=== PATIENT | female | born 2000 | race Caucasian/White ===

== ENCOUNTER 2021-03-16 10:45 | Emergency (ER) | payer MEDICAID, SELFPAY ==
[2021-03-16 10:57] VITALS: BP 125/83; PULSE 95; RESP 18; TEMP 37; O2SAT 100; BMI 27.3
--- NOTE | 2021-03-16 11:15 | ED_ITS ---
HPI - Abdominal Pain General Chief Complaint: Abdominal Pain Stated Complaint: abd pain Time Seen by Provider: 03/16/21 11:10 Source: patient Limitations: language barrier History of Present Illness HPI narrative: Patient presents the ER complaining of dysuria 2-3 days with some noted blood in her urine. Because of the painful urination. No nausea vomiting some slight left-sided abdominal pain symptoms are [id number] history of UTI many years prior. No fever chills or other complaints this time. Patient interviewed with screening alpaca farmer although patient does speak a fair amount of Romanian. Related Data Previous Rx's Medication Instructions Recorded sulfamethoxazole 800 1 tab PO BID 5 Days #10 tab 03/16/21 mg-trimethoprim 160 mg tablet (Bactrim DS) Allergies Allergy/AdvReac Type Severity Reaction Status Date / Time No Known Allergies Allergy Verified 03/16/21 10:57 Review of Systems Constitutional: Denies body ache(s), Denies chills, Denies fever(s) and Denies headache(s) Denies headache(s) and Denies sore throat Cardiovascular: Denies chest pain and Denies dyspnea Respiratory: Denies dyspnea Gastrointestinal: Reports abdominal pain (Slight left-sided), Denies diarrhea, Denies nausea and Denies vomiting Genitourinary: Reports dysuria, Denies flank pain, Reports urinary urgency and Denies vaginal discharge Musculoskeletal: Denies back pain Denies headache(s) Physical Exam Verdana 4l Vital Signs: Verdana 4d Verdana 4d Vital Signs: Verdana 4d Verdana 4Bd Last Vital Signs Verdana 4d Grinder New 4d Grinder New 4d Temp 98.6 F 03/16/21 10:57 Grinder New 4d Pulse 95 03/16/21 10:57 Grinder New 4d Resp 18 03/16/21 10:57 BP 125/83 03/16/21 10:57 Pulse Ox 100 03/16/21 10:57 BMI result Body Mass Index 27.3 vital signs have been reviewed as normal and appeared to be correct. Blood pressure normal. Heart rate normal. Respiration rate normal. Temperature normal. Oxygen saturation normal. Appearance: Alert. Oriented X3. No acute distress. Head: Normal external exam. Normocephalic. Atraumatic. Eyes: PERRLA. EOMI. Conjunctiva and sclera normal. Eyelids normal. ENT: Pharynx normal. Uvula midline. Moist mucous membranes. Neck: Soft full range of motion, no JVD CVS: Heart regular rate and rhythm no murmurs and rubs Respiratory: Breath sounds are clear to auscultation bilaterally. No accessory muscle use noted. Abdomen: Abdomen soft no rebound or guarding positive bowel sounds Back: No CVA tenderness. Full range of motion noted. Skin: Skin warm and dry. Normal skin color. Normal skin turgor. No rashes/lesions/lacerations noted. Extremities: No lower extremity edema. Extremities exhibit normal range of motion. Extremities nontender. Neuro: Oriented X 3. No motor deficit. No sensory deficit. Reflexes normal. Course Course Course Narrative: Pyelonephritis UTI Dysuria UA is pending 11:54 a.m. Case discussed with patient at length with video alpaca farmer patient understands the diagnostic findings and plan to start on antibiotics at this time. Patient also notes instructed increase fluids rest and return if symptoms worsen. MDM - Abdominal Pain Lab Data Labs: Lab Results 03/16/21 Range/Units 11:16 Urine Color YELLOW Urine Appearance HAZY Urine pH 6.0 (5.0-8.0) Ur Specific [place] 1.015 (1.005-1.025) Urine Protein TRACE (NEG-TRACE) MG/DL Urine Glucose (UA) NEG (NEG) MG/DL Urine Ketones NEG (NEG) MG/DL Urine Blood 2+ H (NEG) Urine Nitrite NEG (NEG) Ur Leukocyte Esterase 2+ H (NEG) Discharge Plan Discharge Clinical Impression: Urinary tract infection Qualifiers: Urinary tract infection type: acute cystitis Hematuria presence: with hematuria Qualified Code(s): N30.01 - Acute cystitis with hematuria Patient Disposition: Home, Self-Care Instructions: Urinary Tract Infection in Women (DC) Additional Instructions: Increase fluids rest Return if symptoms worsen Prescriptions: New sulfamethoxazole-trimethoprim [Bactrim DS] 800-160 mg tablet 1 tab PO BID 5 Days Qty: 10 0RF Print Language: Welsh [facility] Past Medical History Attestation statement: The following information was validated with the patient. Medical History Anemia Social History Social History Advance Directives: No Advance Directives Information Provided: No
[2021-03-16 11:22] LABS: Appearance Urine HAZY; Color Urine YELLOW; Glucose Urine UA NEG (NEG); Leukocyte Esterase Urine 2+ (NEG); Nitrite Urine NEG (NEG); Specific Gravity - Urine 1.015 (1.005-1.025); UACC Culture Trigger YES; Urine Blood 2+ (NEG); Urine Ketones NEG (NEG); Urine Protein TRACE MG/DL (NEG-TRACE)
[2021-03-16 12:03] LABS: WBC Urine 30-49 /HPF (0-4)
[2021-03-16 12:04] LABS: Bacteria Urine 2+ /LPF; Mucus Urine 1+ /LPF; Squamous Epithelial Cell Urine 2+ /LPF
== END 2021-03-16 12:07 | disposition home or self-care (01) ==
PROVIDERS: Emergency Provider Emergency Medicine
DX: N30.01 Acute cystitis with hematuria (principal)
CPT/HCPCS: 81001; 87086; 87186; 99283

== ENCOUNTER 2022-01-08 10:42 | Emergency (ER) | payer MEDICAID, SELFPAY ==
[2022-01-08 10:44] VITALS: BP 131/78; PULSE 78; RESP 16; TEMP 36.7; O2SAT 100; BMI 25.0
--- NOTE | 2022-01-08 11:03 | ECG_ITS ---
Test Reason : DIZZINESS Blood Pressure : / mmHG Vent. Rate : 081 BPM Atrial Rate : 081 BPM P-R Int : 128 ms QRS Dur : 076 ms QT Int : 358 ms P-R-T Axes : 038 026 028 degrees QTc Int : 415 ms Normal sinus rhythm Intra-ventricular conduction delay Left axis deviation Otherwise normal ECG No previous ECGs available Referred By: David Suarez Electronically Signed By:BONNY BARCENAS MD
--- NOTE | 2022-01-08 11:20 | ED_ITS ---
HPI - General Adult General Chief complaint: Arrhythmia/Palpitations Stated complaint: dizzy palpations Time Seen by Provider: 01/08/22 10:56 Source: patient, family and head paper tester Mode of arrival: ambulatory Limitations: no limitations History of Present Illness HPI narrative: 21-year-old female came in for evaluation of feeling dizziness and palpitation. Symptoms started about a week ago usually in the morning time and occasionally during the day, patient feels dizziness and lightheadedness and rapid heartbeat, no chest pain, no shortness of breath. No fever, no chills. Related Data Previous Rx's Medication Instructions Recorded sulfamethoxazole 800 1 tab PO BID 5 days #10 tabs 03/16/21 mg-trimethoprim 160 mg tablet (Bactrim DS) Allergies Allergy/AdvReac Type Severity Reaction Status Date / Time No Known Allergies Allergy Verified 04/28/21 11:13 Review of Systems Review of Systems: All other systems are reviewed and are negative Constitutional: Reports as per HPI and Reports no additional constitutional complaints Eyes: Reports as per HPI and Reports no additional eye complaints Reports system reviewed and no additional complaints, except as documented Cardiovascular: Reports as per HPI and Reports no additional cardiovascular complaints Respiratory: Reports as per HPI and Reports no additional respiratory complaints Gastrointestinal: Reports as per HPI and Reports no additional gastrointestinal complaints Genitourinary: Reports no additional female genitourinary complaints Musculoskeletal: Reports no additional musculoskeletal complaints Skin/Breast: Reports system reviewed and no additional complaints, except as docu Psychiatric: Reports no additional psychiatric complaints Endocrine: Reports no additional endocrine complaints Hematologic/Lymphatic: Reports no additional hematologic/lymphatic complaints Allergic/Immunologic: Reports no additional allergic/immunologic complaints Reports system reviewed and no additional complaints, except as documented and Reports Abnormal speech present [facility] Past Medical History Medical History (Updated 01/08/22 @ 13:09 by David Suarez MD) Anemia Social History Social History (System 04/28/21 @ 11:13 by Sadaf Avila) Advance Directives: No Advance Directives Information Provided: No Physical Exam ED Vital Signs: Vital Signs - 24 hr 01/08/22 10:44 01/08/22 12:07 Temperature 98.1 F 98.4 F Pulse Rate 78 72 Respiratory Rate 16 14 Blood Pressure 131/78 114/64 Pulse Oximetry 100 100 Oxygen Delivery Method Room Air Room Air BMI result Body Mass Index 25.0 Vital signs have been reviewed as appeared to be correct. Blood pressure normal. Heart rate normal. Respiration rate normal. Temperature normal. Oxygen saturation normal. Appearance: Alert. Oriented X3. No acute distress. Head: Normal external exam. Normocephalic. Atraumatic. No Daley signs noted. No raccoon eyes noted Eyes: PERRLA. EOMI. Conjunctiva and sclera normal. Eyelids normal. ENT: TM's Normal. Pharynx normal. Uvula midline. Moist mucous membranes. No trismus noted. No drooling noted. No muffled voice noted. Neck: Normal inspection. Neck supple. FROM. No adenopathy. Thyroid Normal. No meningeal signs. No neck mass noted. CVS: Normal heart rate and rhythm. Heart sound normal. No murmurs noted. Pulses normal throughout. Respiratory: No respiratory distress. Painless inspiration. Breath sounds normal. No wheezes/rales/rhonchi noted. Chest nontender. No accessory muscle usage noted or decreased air movement noted. Abdomen: Soft and nontender. Bowel sounds normal in all 4 quadrants. No distention noted. No organomegaly noted. No visible injury noted. Back: No CVA tenderness. Full range of motion noted. Skin: Skin warm and dry. Normal skin color. Normal skin turgor. No rashes/lesions/lacerations noted. Extremities: No lower extremity edema. Extremities exhibit normal range of motion. Extremities nontender. Neuro: Oriented X 3. Cranial nerve exam: II-XII are grossly intact No motor deficit. No sensory deficit. Reflexes normal. Course Course Course Narrative: 21-year-old female came in for evaluation of palpitation and dizziness, patient tested positive for , patient's symptoms is more than likely related to early , patient was instructed to follow up with OB to start care. Medical Decision Making Lab Data Lab results reviewed: Yes I reviewed the patient's lab results. Result diagrams: 01/08/22 11:23 01/08/22 11:32 Labs: Lab Results 01/08/22 01/08/22 01/08/22 Range/Units 11: 11: 11:26 WBC 7.4 (4.8-10.8) X10*3/uL RBC 4.58 (4.20-5.50) X10*6/uL Hgb 12.7 (12.0-16.0) g/dl Hct 39.6 (37.0-47.0) % MCV 86.5 (80.0-98.0) fL MCH 27.7 (27.0-33.0) pg MCHC 32.1 (31.0-35.0) g/dl RDW 14.9 (11.0-16.0) % Plt Count 437 H (160-400) X10*3/uL MPV Not Reportable Immature Gran % (Auto) 0.4 (0.0-0.4) % Neut % (Auto) 51.3 (45-73) % Lymph % (Auto) 38.2 (20-40) % Buchanan % (Auto) 7.9 (2-11) % Eos % (Auto) 1.5 (0-4) % Baso % (Auto) 0.7 (0-2) % Lymph # (Auto) 2.8 (1.2-4.9) X10*3/uL [place]anan # (Auto) 0.6 (0.1-1.2) X10*3/uL Eos # (Auto) 0.1 (0.0-0.4) X10*3/uL Baso # (Auto) 0.1 (0.0-0.2) X10*3/uL Abs Immat Gran (auto) 0.03 (0.00-0.03) X10*3/uL Absolute Neuts (auto) 3.8 (2.0-8.3) x10*3/uL Absolute Nucleated RBC 0.000 (0.0-0.012) X10*3/uL Nucleated RBC % (auto) 0.0 (0.0-0.2) /100WBC Smear Tech's Comments VERIFIED Sodium (135-145) mmol/L Potassium (3.3-5.1) mmol/L Chloride (96-108) mmol/L Carbon Dioxide (22-29) mmol/L Anion Gap (12-20) BUN (9-16) mg/dL Creatinine (0.5-1.4) mg/dL Estim Creat Clear Calc Estimated GFR Random Glucose (60-115) mg/dL Calcium (8.4-10.2) mg/dL Magnesium (1.6-2.6) mg/dL Total Bilirubin (0.0-1.0) mg/dL Direct Bilirubin (0.0-0.5) mg/dL AST (5-31) U/L ALT (0-31) U/L Alkaline Phosphatase (39-117) U/L Troponin I High Sens < 3.5 (<3.5-17.0) ng/L Total Protein (6.5-8.0) g/dL Albumin (3.5-5.0) g/dL Lipase (8-78) U/L Urine Color Urine Appearance Urine pH (5.0-9.0) Ur Specific Baring (1.005-1.025) Urine Protein (Neg-Trace) mg/dL Urine Glucose (UA) (Negative) mg/dL Urine Ketones (Negative) mg/dL Urine Blood (Negative) Urine Nitrite (Negative) Ur Leukocyte Esterase (Negative) Urine Test (NEGATIVE) Influenza Type A (PCR) NEGATIVE (Negative) Influenza Type B (PCR) NEGATIVE (Negative) RSV RNA Qual (PCR) NEGATIVE (Negative) SARS-CoV-2 RNA (RT-PCR) NEGATIVE (Negative) 01/08/22 01/08/22 01/08/22 Range/Units 11:32 11:50 11:50 WBC (4.8-10.8) X10*3/uL RBC (4.20-5.50) X10*6/uL Hgb (12.0-16.0) g/dl Hct (37.0-47.0) % MCV (80.0-98.0) fL MCH (27.0-33.0) pg MCHC (31.0-35.0) g/dl RDW (11.0-16.0) % Plt Count (160-400) X10*3/uL MPV Immature Gran % (Auto) (0.0-0.4) % Neut % (Auto) (45-73) % Lymph % (Auto) (20-40) % Buchanan % (Auto) (2-11) % Eos % (Auto) (0-4) % Baso % (Auto) (0-2) % Lymph # (Auto) (1.2-4.9) X10*3/uL [place]anan # (Auto) (0.1-1.2) X10*3/uL Eos # (Auto) (0.0-0.4) X10*3/uL Baso # (Auto) (0.0-0.2) X10*3/uL Abs Immat Gran (auto) (0.00-0.03) X10*3/uL Absolute Neuts (auto) (2.0-8.3) x10*3/uL Absolute Nucleated RBC (0.0-0.012) X10*3/uL Nucleated RBC % (auto) (0.0-0.2) /100WBC Smear Tech's Comments Sodium 137 (135-145) mmol/L Potassium 5.0 (3.3-5.1) mmol/L Chloride 103 (96-108) mmol/L Carbon Dioxide 27 (22-29) mmol/L Anion Gap 12 (12-20) BUN 8 L (9-16) mg/dL Creatinine 0.71 (0.5-1.4) mg/dL Estim Creat Clear Calc 113.7 Estimated GFR > 60 Random Glucose 93 (60-115) mg/dL Calcium 10.2 (8.4-10.2) mg/dL Magnesium 1.9 (1.6-2.6) mg/dL Total Bilirubin 0.4 (0.0-1.0) mg/dL Direct Bilirubin 0.2 (0.0-0.5) mg/dL AST 21 (5-31) U/L ALT 15 (0-31) U/L Alkaline Phosphatase 62 (39-117) U/L Troponin I High Sens (<3.5-17.0) ng/L Total Protein 7.7 (6.5-8.0) g/dL Albumin 4.4 (3.5-5.0) g/dL Lipase 16 (8-78) U/L Urine Color Yellow Urine Appearance Clear Urine pH 7.0 (5.0-9.0) Ur Specific Baring 1.010 (1.005-1.025) Urine Protein Negative (Neg-Trace) mg/dL Urine Glucose (UA) Negative (Negative) mg/dL Urine Ketones Negative (Negative) mg/dL Urine Blood Negative (Negative) Urine Nitrite Negative (Negative) Ur Leukocyte Esterase Negative (Negative) Urine Test POSITIVE H (NEGATIVE) Influenza Type A (PCR) (Negative) Influenza Type B (PCR) (Negative) RSV RNA Qual (PCR) (Negative) SARS-CoV-2 RNA (RT-PCR) (Negative) Discharge Plan Discharge Clinical Impression: Early stage of Patient Disposition: Home, Self-Care Instructions: (ED) Prescriptions: No Action sulfamethoxazole-trimethoprim [Bactrim DS] 800-160 mg tablet 1 tab PO BID 5 Days Qty: 10 0RF Referrals: [facility] [Primary Care Provider] -
[2022-01-08 11:36] LABS: Basophils Absolute Auto 0.1 X10*3/uL (0.0-0.2); Basophils Percent Auto 0.7 % (0-2); Eosinophils Absolute Auto 0.1 X10*3/uL (0.0-0.4); Eosinophils Percent Auto 1.5 % (0-4); Hematocrit 39.6 % (37.0-47.0); Hemoglobin 12.7 g/dl (12.0-16.0); Imm Gran Abs Auto 0.03 X10*3/uL (0.00-0.03); Imm Gran Pct Auto 0.4 % (0.0-0.4); Lymphocytes Absolute Auto 2.8 X10*3/uL (1.2-4.9); Lymphocytes Percent Auto 38.2 % (20-40); MANUAL DIFF FLAG SCAN; Mean Corpuscular HGB Conc 32.1 g/dl (31.0-35.0); Mean Corpuscular Hemoglobin 27.7 pg (27.0-33.0); Mean Corpuscular Volume 86.5 fL (80.0-98.0); Monocytes Absolute Auto 0.6 X10*3/uL (0.1-1.2); Monocytes Percent Auto 7.9 % (2-11); Neutrophils Absolute Auto 3.8 x10*3/uL (2.0-8.3); Neutrophils Percent Auto 51.3 % (45-73); PLT CLUMP 1; Red Blood Count 4.58 X10*6/uL (4.20-5.50); Red Cell Distribution Width 14.9 % (11.0-16.0); SCAN SMEAR FLAG 1
[2022-01-08 11:37] LABS: White Blood Count 7.4 X10*3/uL (4.8-10.8)
[2022-01-08 11:56] LABS: Alanine Aminotransferase 15 U/L (0-31); Albumin Level 4.4 g/dL (3.5-5.0); Alkaline Phosphatase 62 U/L (39-117); Anion Gap 12 (12-20); Aspartate Amino Transferase 21 U/L (5-31); Bilirubin Direct 0.2 mg/dL (0.0-0.5); Bilirubin Total 0.4 mg/dL (0.0-1.0); Blood Urea Nitrogen 8 mg/dL (9-16); Calcium 10.2 mg/dL (8.4-10.2); Carbon Dioxide 27 mmol/L (22-29); Chloride 103 mmol/L (96-108); Creatinine Clr Calc Pharmacy 113.7; Estimated Glomerular Filt Rate > 60; Glucose Random 93 mg/dL (60-115); Lipase 16 U/L (8-78); Magnesium 1.9 mg/dL (1.6-2.6); Sodium 137 mmol/L (135-145); Total Protein 7.7 g/dL (6.5-8.0)
[2022-01-08 11:59] LABS: Troponin-I High Sensitivity < 3.5 ng/L (<3.5-17.0)
[2022-01-08 12:03] LABS: Appearance Urine Clear; Color Urine Yellow; Glucose Urine UA Negative (Negative); Leukocyte Esterase Urine Negative (Negative); Nitrite Urine Negative (Negative); Urine Blood Negative (Negative); Urine Ketones Negative (Negative); Urine Protein Negative (Neg-Trace)
[2022-01-08 12:07] VITALS: BP 114/64; PULSE 72; RESP 14; TEMP 36.9; O2SAT 100
[2022-01-08 12:07] LABS: Platelet Count 437 X10*3/uL (160-400); SLIDE REVIEW VERIFIED
[2022-01-08 12:10] LABS: UPreg QC Valid YES; Urine Pregnancy POSITIVE (NEGATIVE)
[2022-01-08 12:15] LABS: Influenza A PCR NEGATIVE (Negative); Influenza B PCR NEGATIVE (Negative); Resp Syncy Virus RNA Qual PCR NEGATIVE (Negative); SARS COV2 PCR INHOUSE NEGATIVE (Negative)
== END 2022-01-08 13:56 | disposition home or self-care (01) ==
PROVIDERS: Emergency Provider Emergency Medicine
DX: O26.891 Other specified pregnancy related conditions, first trimester (principal); R42 Dizziness and giddiness; Z20.822 Contact with and (suspected) exposure to COVID-19; Z3A.01 Less than 8 weeks gestation of pregnancy
CPT/HCPCS: 0241U; 36415; 80048; 80076; 81003; 81025; 83690; 83735; 84484; 85025; 93005; 99283; 99284

== ENCOUNTER 2022-01-15 19:14 | Emergency (ER) | payer MEDICAID, SELFPAY ==
--- NOTE | ~2022-01-15 | US_ITS ---
EXAMINATION: US OBSTETRICAL ULTRASOUND CLINICAL INFORMATION: 6 weeks with lower abdominal pain and question of ectopic COMPARISON: None. LMP: 12/03/2021. Gestational age by maternal dates is 6 weeks 1 day. Estimated date of delivery by maternal dates is 09/09/2022. TECHNIQUE: Both transabdominal and endovaginal scanning was performed. FINDINGS: There is a single intrauterine gestational sac with visible yolk sac, embryo/fetus, and cardiac activity. There is no significant subchorionic hemorrhage or hematoma. HR: 107 beats per minute. CRL (crown rump length): 0.42 cm (6 weeks 1 day +/- 4 days). NOVA (estimated date of delivery): 09/09/2022 +/- 4 days. MATERNAL ADNEXA: The right maternal ovary measures 2.7 x 1.6 x 1.5 cm. The left maternal ovary measures 3.0 x 2.1 x 2.1 cm. A 2.1 x 1.7 x 1.3 cm corpus luteal cyst is present. There is no significant maternal adnexal mass. Trace fluid in the right adnexa. US/US OB pelvic and transvaginal IMPRESSION: 1. Single intrauterine gestation with ultrasound gestational age of 6 weeks 1 day +/- 4 days. 2. Estimated date of delivery is 09/09/2022 +/- 4 days. 3. No maternal adnexal mass or significant pelvic ascites.
[2022-01-15 19:32] VITALS: BP 127/78; PULSE 79; RESP 20; TEMP 36.3; O2SAT 98; BMI 26.2
--- NOTE | 2022-01-15 19:32 | ED.GENADULT ---
HPI - General Adult General Chief complaint: Abdominal Pain <ALEXANDRIA Huntley - Last Filed: 01/15/22 19:39> Stated complaint: Abd pain/6 Weeks <ALEXANDRIA Huntley - Last Filed: 01/15/22 19:39> Time Seen by Provider: 01/15/22 23:50 <ALEXANDRIA Huntley - Last Filed: 01/15/22 19:39> Source: patient <Lou Scott CNP - Last Filed: 01/16/22 00:29> Mode of arrival: ambulatory <Lou Scott CNP - Last Filed: 01/16/22 00:29> Limitations: no limitations <Lou Scott CNP - Last Filed: 01/16/22 00:29> History of Present Illness HPI narrative: Patient is a 21-year-old female presents emergency department for evaluation of left lower quadrant pain. Onset of symptoms was 3 days ago. She was seen at [facility] today, have positive test. She was sent here to rule out ectopic . She denies fevers, chills, chest pain, shortness of breath, nausea, vomiting, dysuria, urinary frequency, hematuria, vaginal bleeding, abnormal vaginal discharge. States last menstrual period was 12/03/2021. Conceived naturally. She reports that she is traveling to [place] next week, and wanted to make sure that she was ?okay to travel?. <Lou Scott CNP - Last Filed: 01/16/22 00:29> Related Data Home medications: Previous Rx's Medication Instructions Recorded sulfamethoxazole 800 1 tab PO BID 5 days #10 tabs 03/16/21 mg-trimethoprim 160 mg tablet (Bactrim DS) <ALEXANDRIA Huntley - Last Filed: 01/15/22 19:39> Allergies/adverse reactions: Allergies Allergy/AdvReac Type Severity Reaction Status Date / Time No Known Allergies Allergy Verified 01/15/22 19:38 <ALEXANDRIA Huntley - Last Filed: 01/15/22 19:39> Review of Systems Review of Systems: Constitutional : No Weight loss, No Fever, No Chills ENT/Mouth :? No sore throat, No Rhinorrhea Eyes: No Swelling, No Redness Cardiovascular : No Chest Pain, No SOB, No Edema Respiratory : No Cough, No Sputum, No Wheezing Gastrointestinal : no Nausea, no Vomiting, no Diarrhea, positive abdominal pain, No Hematochezia, No Melena Genitourinary : No Dysuria, No Urinary Frequency, No Hematuria, No Urgency? Musculoskeletal : No joint pain, No Myalgias, No Joint Swelling Skin : No Skin Lesions, No rash Neuro : No Weakness, No Numbness, No Dizziness, No Headache Psych : No Anxiety/Panic, No Depression Heme/Lymph: No Bruising, No Lymphadenopathy Endocrine : No Polyuria, No Polydipsia <Lou Scott CNP - Last Filed: 01/16/22 00:29> Yes all other systems are reviewed and are negative <Lou Scott CNP - Last Filed: 01/16/22 00:29> [facility] Past Medical History Attestation statement: The following information was validated with the patient. <Lou Scott CNP - Last Filed: 01/16/22 00:29> Source: old records reviewed <Lou Scott CNP - Last Filed: 01/16/22 00:29> Medical History: Medical History Anemia <ALEXANDRIA Huntley - Last Filed: 01/15/22 19:39> Physical Exam ED Vital Signs: Vital Signs - 24 hr 01/15/22 19:32 Temperature 97.4 F Pulse Rate 79 Respiratory Rate 20 Blood Pressure 127/78 Pulse Oximetry 98 BMI result Body Mass Index 26.2 <ALEXANDRIA Huntley - Last Filed: 01/15/22 19:39> Vital Signs - 24 hr 01/15/22 19:32 Temperature 97.4 F Pulse Rate 79 Respiratory Rate 20 Blood Pressure 127/78 Pulse Oximetry 98 BMI result Body Mass Index 26.2 <Lou Scott CNP - Last Filed: 01/16/22 00:29> Appearance: Alert.?Oriented to person, place and time. No acute distress.?Normal affect. Eyes: Pupils equal, round and reactive to light.? ENT: Pharynx normal.?? Neck: Normal inspection.? Neck supple.?? CVS: Heart sounds normal. Normal heart rate and rhythm.? Pulses normal.?? Respiratory: No respiratory distress.? Lung sounds clear to auscultation bilaterally?? Abdomen: Soft with mild left lower quadrant tenderness upon palpation. No rebound tenderness. No guarding. No CVA tenderness. Normoactive bowel sounds. Skin: Skin warm and dry.? Normal skin color.? Extremities: No lower extremity edema.? Neuro: Moves all extremities spontaneously. Sensation intact bilaterally. No focal neuro deficits. Ambulates with normal steady gait. <Lou Scott CNP - Last Filed: 01/16/22 00:29> Course Course Course Narrative: Patient is a 21-year-old female the past medical history of anemia presenting to emergency department for evaluation of left lower quadrant abdominal pain in the setting of . Reviewed RME below. CBC reveals a normocytic anemia not needing transfusion threshold, BMP within normal limits. Reports that she had a urinalysis at the clinic without any evidence of infection. Ultrasound reveals single intrauterine gestation with gestational age of 6 days. Estimated due date 09/09/2022. Reviewed these findings with patient. Not consistent with ectopic . Discussed plan of care for discharge home, outpatient follow-up with OB provider, patient states that she has vitamins at home. <Lou Scott CNP - Last Filed: 01/16/22 00:29> Reevaluation(s) Reevaluation #1: RME 21 year old female presents w/ 3 days of severe LLQ pain and L flank pain. Sent in from [facility] to r/o ectopic . Denies nausea, vomiting, fevers, chills, headache, chest pain, shortness of breath, vaginal bleeding. Not a planned . PE LLQ pain, appears well, non toxic Plan- US, HCG basic labs. <ALEXANDRIA Huntley - Last Filed: 01/15/22 19:39> Time: 19:38 <ALEXANDRIA Huntley - Last Filed: 01/15/22 19:39> Medical Decision Making Medical Records Medical records reviewed: Yes I reviewed the patient's medical records. <Lou Scott CNP - Last Filed: 01/16/22 00:29> Lab Data Lab results reviewed: Yes I reviewed the patient's lab results. <Lou Scott CNP - Last Filed: 01/16/22 00:29> Result diagrams: : 01/15/22 21:36 01/15/22 21:36 <LAEXANDRIA Huntley - Last Filed: 01/15/22 19:39> Labs: Lab Results 01/15/22 01/15/22 01/15/22 Range/Units 21:36 21:36 21:36 WBC 9.5 (4.8-10.8) X10*3/uL RBC 4.00 L (4.20-5.50) X10*6/uL Hgb 11.4 L (12.0-16.0) g/dl Hct 34.4 L (37.0-47.0) % MCV 86.0 (80.0-98.0) fL MCH 28.5 (27.0-33.0) pg MCHC 33.1 (31.0-35.0) g/dl RDW 15.0 (11.0-16.0) % Plt Count 410 H (160-400) X10*3/uL MPV 8.2 L (9.4-12.3) fL Immature Gran % (Auto) 0.3 (0.0-0.4) % Neut % (Auto) 57.2 (45-73) % Lymph % (Auto) 34.9 (20-40) % [place] % (Auto) 5.8 (2-11) % Eos % (Auto) 1.4 (0-4) % Baso % (Auto) 0.4 (0-2) % Lymph # (Auto) 3.3 (1.2-4.9) X10*3/uL [place] # (Auto) 0.6 (0.1-1.2) X10*3/uL Eos # (Auto) 0.1 (0.0-0.4) X10*3/uL Baso # (Auto) 0.0 (0.0-0.2) X10*3/uL Abs Immat Gran (auto) 0.03 (0.00-0.03) X10*3/uL Absolute Neuts (auto) 5.4 (2.0-8.3) x10*3/uL Absolute Nucleated RBC 0.000 (0.0-0.012) X10*3/uL Nucleated RBC % (auto) 0.0 (0.0-0.2) /100WBC Sodium 137 (135-145) mmol/L Potassium 3.9 D (3.3-5.1) mmol/L Chloride 104 (96-108) mmol/L Carbon Dioxide 25 (22-29) mmol/L Anion Gap 12 (12-20) BUN 10 (9-16) mg/dL Creatinine 0.68 (0.5-1.4) mg/dL Estim Creat Clear Calc 130.9 Estimated GFR > 60 Random Glucose 98 (60-115) mg/dL Calcium 9.8 (8.4-10.2) mg/dL Beta HCG, Quant 45094 mIU/mL Blood Type O Positive <ALEXANDRIA Huntley - Last Filed: 01/15/22 19:39> Lab Results 01/15/22 01/15/22 01/15/22 Range/Units 21:36 21:36 21:36 WBC 9.5 (4.8-10.8) X10*3/uL RBC 4.00 L (4.20-5.50) X10*6/uL Hgb 11.4 L (12.0-16.0) g/dl Hct 34.4 L (37.0-47.0) % MCV 86.0 (80.0-98.0) fL MCH 28.5 (27.0-33.0) pg MCHC 33.1 (31.0-35.0) g/dl RDW 15.0 (11.0-16.0) % Plt Count 410 H (160-400) X10*3/uL MPV 8.2 L (9.4-12.3) fL Immature Gran % (Auto) 0.3 (0.0-0.4) % Neut % (Auto) 57.2 (45-73) % Lymph % (Auto) 34.9 (20-40) % [place] % (Auto) 5.8 (2-11) % Eos % (Auto) 1.4 (0-4) % Baso % (Auto) 0.4 (0-2) % Lymph # (Auto) 3.3 (1.2-4.9) X10*3/uL [place] # (Auto) 0.6 (0.1-1.2) X10*3/uL Eos # (Auto) 0.1 (0.0-0.4) X10*3/uL Baso # (Auto) 0.0 (0.0-0.2) X10*3/uL Abs Immat Gran (auto) 0.03 (0.00-0.03) X10*3/uL Absolute Neuts (auto) 5.4 (2.0-8.3) x10*3/uL Absolute Nucleated RBC 0.000 (0.0-0.012) X10*3/uL Nucleated RBC % (auto) 0.0 (0.0-0.2) /100WBC Sodium 137 (135-145) mmol/L Potassium 3.9 D (3.3-5.1) mmol/L Chloride 104 (96-108) mmol/L Carbon Dioxide 25 (22-29) mmol/L Anion Gap 12 (12-20) BUN 10 (9-16) mg/dL Creatinine 0.68 (0.5-1.4) mg/dL Estim Creat Clear Calc 130.9 Estimated GFR > 60 Random Glucose 98 (60-115) mg/dL Calcium 9.8 (8.4-10.2) mg/dL Beta HCG, Quant 35702 mIU/mL Blood Type O Positive <Lou Scott CNP - Last Filed: 01/16/22 00:29> Imaging Data US - abdomen: Radiologist's impression: US/US OB pelvic and transvaginal IMPRESSION: 1. Single intrauterine gestation with ultrasound gestational age of? 6 weeks 1 day +/- 4 days. 2. Estimated date of delivery is 09/09/2022 +/- 4 days. 3. No maternal adnexal mass or significant pelvic ascites. <Lou Scott CNP - Last Filed: 01/16/22 00:29> Discharge Plan Discharge Clinical Impression: First trimester , Abdominal pain <ALEXANDRIA Huntley - Last Filed: 01/15/22 19:39> Patient Disposition: Home, Self-Care <ALEXANDRIA Huntley - Last Filed: 01/15/22 19:39> Instructions: Abdominal Pain in (ED) <ALEXANDRIA Huntley - Last Filed: 01/15/22 19:39> Additional Instructions: As discussed, the ultrasound reveals a single intrauterine which is what is expected, this is normal. Your estimated due date is 09/09/2022. You are approximately 6 weeks . As advised, please be sure to rest, drink plenty of fluid, you may take Tylenol for ibuprofen. Begin taking a daily vitamin. Follow-up with your OB provider Return to the emergency department with any new or worsening symptoms or concerns. <ALEXANDRIA Huntley - Last Filed: 01/15/22 19:39> Prescriptions: No Action sulfamethoxazole-trimethoprim [Bactrim DS] 800-160 mg tablet 1 tab PO BID 5 Days Qty: 10 0RF <ALEXANDRIA Huntley - Last Filed: 01/15/22 19:39>
[2022-01-15 21:43] LABS: MANUAL DIFF FLAG NO
[2022-01-15 21:47] LABS: Basophils Percent Auto 0.4 % (0-2); Eosinophils Absolute Auto 0.1 X10*3/uL (0.0-0.4); Eosinophils Percent Auto 1.4 % (0-4); Hematocrit 34.4 % (37.0-47.0); Hemoglobin 11.4 g/dl (12.0-16.0); Imm Gran Abs Auto 0.03 X10*3/uL (0.00-0.03); Imm Gran Pct Auto 0.3 % (0.0-0.4); Lymphocytes Absolute Auto 3.3 X10*3/uL (1.2-4.9); Lymphocytes Percent Auto 34.9 % (20-40); Mean Corpuscular HGB Conc 33.1 g/dl (31.0-35.0); Mean Corpuscular Hemoglobin 28.5 pg (27.0-33.0); Mean Platelet Volume 8.2 fL (9.4-12.3); Monocytes Absolute Auto 0.6 X10*3/uL (0.1-1.2); Monocytes Percent Auto 5.8 % (2-11); Neutrophils Absolute Auto 5.4 x10*3/uL (2.0-8.3); Neutrophils Percent Auto 57.2 % (45-73); Platelet Count 410 X10*3/uL (160-400); White Blood Count 9.5 X10*3/uL (4.8-10.8)
[2022-01-15 22:03] LABS: Anion Gap 12 (12-20); Blood Urea Nitrogen 10 mg/dL (9-16); Calcium 9.8 mg/dL (8.4-10.2); Carbon Dioxide 25 mmol/L (22-29); Chloride 104 mmol/L (96-108); Creatinine Clr Calc Pharmacy 130.9; Estimated Glomerular Filt Rate > 60; Glucose Random 98 mg/dL (60-115); Potassium 3.9 mmol/L (3.3-5.1); Sodium 137 mmol/L (135-145)
[2022-01-15 22:11] LABS: HCG Quantitative 13518 mIU/mL
== END 2022-01-16 00:39 | disposition home or self-care (01) ==
PROVIDERS: Emergency Provider Internal Medicine
DX: R10.32 Left lower quadrant pain (principal); R10.2 Pelvic and perineal pain; Z79.899 Other long term (current) drug therapy
CPT/HCPCS: 36415; 76801; 76817; 80048; 84702; 85025; 86900; 86901; 99282; 99284